=== PATIENT | female | born 1970 | race Caucasian/White ===

== ENCOUNTER 2016-08-20 15:27 | Inpatient (IN) | payer OTHER ==
[~2016-08-20] VITALS: Ht 182.9 cm; Wt 100.9 kg
[2016-08-20] VITALS (13 sets, daily range): BP systolic 107–132; BP diastolic 61–70; PULSE 93–108; RESP 21–36; TEMP 97.8–98.9; O2SAT 82–98
[~2016-08-20 15:27] MED LIST: ADVAI250I PO; ASPI325T PO; DEPA500T PO; HYDR-4347 PO; ISOS60 PO; METO50TA OR; PANT20 PO; PHEN60TA OR; PRED5TAB PO; TIOT18I INH; VENTAER INH; XANA1TAB6 PO; Z.0.OXYGENDME NC; ZOLO100T PO
[2016-08-20] MEDS ORDERED: SODIUM CHLORIDE 0.9% FLUSH 5 ML FLUSH IVF PRN (15:45)
[2016-08-20] MEDS ORDERED: methylPREDNISolone SOD SUCC 125 MG/2 ML VIAL IVP ONE (15:45)
[2016-08-20] MEDS ORDERED: SODIUM CHLOR 0.9% 1000 ML INJ 1,000 ML IV ONE ×2 (15:45)
[2016-08-20] MEDS ORDERED: ASPIRIN 325 MG TAB PO ONE (15:45)
[2016-08-20] MEDS: RESP: ALBUTEROL 2.5 MG/IPRATROPIUM 0.5 MG NEB (SCH) INH (15:48)
[2016-08-20 16:14] LABS: BLOOD GAS CARBOXYHEMOGLOBIN 5.1 % (0-4); BLOOD GAS HCO3 38 mmol/L (22-26); BLOOD GAS O2 HGB SATURATION 88 % (90-100); BLOOD GAS OXYGEN CONTENT 17.4 Vol % (12.0-20.0); BLOOD GAS PCO2 76 mmHg (38-42); BLOOD GAS PO2 73 mmHG (61-120); BLOOD GAS TOTAL HGB 14.1 G/DL (12.0-16.0); TEMP CORR TO 98.6
[2016-08-20 16:15] LABS: CRITICAL VALUE YES; DRAW SITE RT RADIAL; LITER FLOW 4 L/M; NUMBER OF ARTERIAL PUNCTURES 1; OXYGEN DEVICE NASAL CANNULA; STAT YES; ULNAR PULSE PRESENT
--- NOTE | 2016-08-20 16:26 | RADRPT ---
EXAM DATE/TIME: 08/20/2016 15:54 [place] COMPARISON: CHEST PA & LAT, October 02, 2015, 11:03. INDICATIONS : Cough, SOB MEDICAL HISTORY : Hypothyroidism SURGICAL HISTORY : Hysterectomy. Appendectomy. Tonsillectomy. ENCOUNTER: Initial ACUITY: 1 day PAIN SCORE: 0/10 LOCATION: chest FINDINGS: The lungs are hypoinflated but grossly clear. There is stable mild prominence of the lateral femoral which may reflect adenopathy versus pulmonary hypertension. The heart size is normal. CONCLUSION: Stable prominence of the hilum. Given the stability this likely represents pulmonary hypertension and less likely adenopathy. Shea Calderón MD on August 20, 2016 at 16:21 Board Certified Radiologist. This report was verified electronically.
[2016-08-20 16:33] LABS: APTT (PATIENT) 30.1 SEC (24.3-30.1); PROTHROMBIN TIME - PATIENT 11.3 SEC (9.8-11.6)
[2016-08-20 16:42] LABS: AUTOMATED NEUTROPHIL # 7.6 TH/MM3 (1.8-7.7); BASOPHIL % 0.5 % (0.0-2.0); EOSINOPHIL # 0.1 TH/MM3 (0-0.4); EOSINOPHIL % 0.8 % (0.0-4.0); HEMATOCRIT 41.3 % (35.0-46.0); HEMO FLAGS DIFF FINAL; LYMPH % 15.9 % (9.0-44.0); LYMPHOCYTE # 1.7 TH/MM3 (1.0-4.8); MEAN CORPUSCULAR HEMOGLOBIN 33.3 PG (27.0-34.0); MEAN CORPUSCULAR HGB CONC 33.3 % (32.0-36.0); MONO % 10.1 % (0.0-8.0); NEUT % 72.7 % (16.0-70.0); PLATELET COUNT 339 TH/MM3 (150-450); RED BLOOD COUNT 4.13 MIL/MM3 (4.00-5.30); RED CELL DISTRIBUTION WIDTH 16.5 % (11.6-17.2); WHITE BLOOD COUNT 10.4 TH/MM3 (4.0-11.0)
[2016-08-20 16:47] LABS: ALT (GPT) 13 U/L (10-53); ANION GAP 2 MEQ/L (5-15); AST (GOT) 11 U/L (15-37); BICARBONATE 38.6 MEQ/L (21.0-32.0); BLOOD UREA NITROGEN 2 MG/DL (7-18); CHLORIDE 95 MEQ/L (98-107); GLOMERULAR FILTRATION RATE 113 ML/MIN (>89); MAGNESIUM 2.3 MG/DL (1.5-2.5); POTASSIUM 3.8 MEQ/L (3.5-5.1); SODIUM (NA) 136 MEQ/L (136-145)
[2016-08-20 16:50] LABS: ALKALINE PHOSPHATASE 119 U/L (45-117); TOTAL BILIRUBIN ADULT 0.3 MG/DL (0.2-1.0)
[2016-08-20 16:51] LABS: CREATINE KINASE 84 U/L (26-192)
[2016-08-20 17:41] LABS: BACTERIA, URINE RARE /hpf; BLOOD, URINE NEG (NEG); COMMENT (UR) CULTURE INDICATED; CULTURE IF INDICATED CULTURE INDICATED; GLUCOSE,URINE NEG (NEG); HYALINE CAST, URINE 4 /lpf (RARE); KETONE, URINE NEG (NEG); MUCUS URINE MOD /lpf (OCC); NITRITE,URINE NEG (NEG); SQUAMOUS EPITHELIAL CELL URINE 6 /hpf (0-5); URINE COLOR YELLOW (YELLW/STRAW)
[2016-08-20] MEDS ORDERED: SERT-129 PO (17:54)
[2016-08-20] MEDS ORDERED: PHEN-524 PO (17:54)
[2016-08-20] MEDS ORDERED: METO25TA3 PO (17:54)
[2016-08-20] MEDS ORDERED: HYDR-3535 PO (17:54)
[2016-08-20] MEDS ORDERED: ALBU0.08 NEB (17:54)
[2016-08-20] MEDS ORDERED: ALPR2TAB3 PO (17:57)
[2016-08-20] MEDS ORDERED: ISOS60TA PO (17:57)
[2016-08-20] MEDS ORDERED: DEPA500T3 PO (17:59)
[2016-08-20] MEDS ORDERED: ASPI1TAB69 PO (17:59)
[2016-08-20] MEDS ORDERED: ONDANSETRON HCL 4 MG/2 ML VIAL IV PUSH PRN (18:00)
[2016-08-20] MEDS ORDERED: VENTAER INH (18:00)
[2016-08-20] MEDS ORDERED: cefTRIAXone INJ 1,000 MG in SODIUM CHLORIDE 0.9% INJ 100 ML IV ONE (18:00)
[2016-08-20] MEDS ORDERED: RESP: ALBUTEROL 1.25 MG/3 ML NEB (PRN) NEB (18:00)
[2016-08-20] MEDS ORDERED: ACETAMINOPHEN 325 MG TAB PO PRN (18:00)
[2016-08-20] MEDS: RESP: ALBUTEROL 2.5 MG/3 ML NEB (SCH) INH ×2 (18:23→18:24)
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
--- NOTE | 2016-08-20 19:08 | HHI.HP ---
[facility] Beba Alvarez MD Admission Diagnosis Hypoxia with COPD exacerbation Diagnoses: (1) COPD with acute exacerbation Diagnosis: Principal (2) Hypoxia Diagnosis: Principal (3) Hypercapnia Diagnosis: Principal (4) UTI (urinary tract infection) Diagnosis: Principal (5) Seizure disorder Diagnosis: Principal (6) Tobacco abuse Diagnosis: Principal Travel History International Travel<30 Days: No Contact w/Intl Traveler <30 Da: No Traveled to Known Affected Are: No History of Present Illness This is a 46-year-old female with a PMH of COPD, O2 Dependent, Noncompliant w/ O2, Tobacco Abuse, Seizure Disorder, Anxiety, Depression and HTN who was brought to the ER secondary to SOB. States symptoms have been ongoing x2 wks, completed steroid therapy and treatment w/ Keflex with no improvement. Denies fever or chills. No cough or sick contacts. On arrival, O2 sat 75% on RA. Placed on 4L NC, currently O2 sat 85%. S/p Solu-Medrol, DuoNeb and IV Abx w/ some improvement since arrival, however remains hypoxic. ABG w/ pH 7.32, PCO2 76, PO2 73 on 4L NC. BP 107/69, HR 108, Afebrile. WBC 10.4, elevated neutrophil count. UA with UTI. CXR was stable prominence of the hilum. Review of Systems Other ROS: 14 point review of systems otherwise negative. Past Family Social History Past Medical History PMH: COPD, O2 Dependent, Noncompliant w/ O2, Tobacco Abuse, Seizure Disorder, Anxiety, Depression and HTN Past Surgical History PAST SURGICAL HISTORY: Bilateral Foot Surgery, , Dental Extraction Allergies: Coded Allergies: No Known Allergies (Verified , 08/20/16) Family History PAST FAMILY HISTORY: Reviewed. No h/o DM or CAD Social History PAST SOCIAL HISTORY: Negative for alcohol. Smokes 1ppd. +Marijuana. Physical Exam Vital Signs Vital Signs Date Time Temp Pulse Resp B/P Pulse Ox O2 Delivery O2 Flow Rate FiO2 08/20/16 17:25 97 21 123/68 89 Nasal Cannula 4 08/20/16 16:30 98 24 110/65 89 Nasal Cannula 4 08/20/16 15:50 93 Nasal Cannula 4.00 08/20/16 15:40 98.9 105 36 107/69 82 Room Air 08/20/16 15:30 82 Room Air 08/20/16 15:30 98.9 108 36 107/69 86 08/20/16 15:30 85 Nasal Cannula 2 Physical Exam PE: GENERAL: Middle-aged white female in no acute distress. Looks remarkably well for O2 sat being 85%, able to converse without dyspnea HEENT: PERRLA, EOMI. No scleral icterus or conjunctival pallor. No lid lag or facial droop. CARDIOVASCULAR: Regular rate and rhythm. No obvious murmurs to auscultation. No chest tenderness to palpation. RESPIRATORY: No obvious rhonchi. + wheezing bilaterally. Breath sounds equal bilaterally. GASTROINTESTINAL: Abdomen soft, non-tender, nondistended. BS normal. MUSCULOSKELETAL: Extremities without clubbing, cyanosis, or edema. No obvious deformities. NEUROLOGICAL: Awake, alert and oriented x4. No focal neurologic deficits. Moving both upper and lower extremities spontaneously. Laboratory Laboratory Tests Test 08/20/16 08/20/16 08/20/16 15:59 16:00 16:40 Blood Gas Puncture Site RT RADIAL Blood Gas Patient Temperature 98.6 Blood Gas HCO3 38 Blood Gas Base Excess 12.0 Blood Gas Oxygen Saturation 88 Arterial Blood pH 7.32 Arterial Blood Partial 76 Pressure CO2 Arterial Blood Partial 73 Pressure O2 Arterial Blood Oxygen Content 17.4 Arterial Blood 5.1 Carboxyhemoglobin Arterial Blood Methemoglobin 2.0 Blood Gas Hemoglobin 14.1 Oxygen Delivery Device NASAL CANNULA Blood Gas Liter Flow 4 White Blood Count 10.4 Red Blood Count 4.13 Hemoglobin 13.7 Hematocrit 41.3 Mean Corpuscular Volume 100.0 Mean Corpuscular Hemoglobin 33.3 Mean Corpuscular Hemoglobin 33.3 Concent Red Cell Distribution Width 16.5 Platelet Count 339 Mean Platelet Volume 8.9 Neutrophils (%) (Auto) 72.7 Lymphocytes (%) (Auto) 15.9 Monocytes (%) (Auto) 10.1 Eosinophils (%) (Auto) 0.8 Basophils (%) (Auto) 0.5 Neutrophils # (Auto) 7.6 Lymphocytes # (Auto) 1.7 Monocytes # (Auto) 1.1 Eosinophils # (Auto) 0.1 Basophils # (Auto) 0.0 CBC Comment DIFF FINAL Differential Comment Prothrombin Time 11.3 Prothromb Time International 1.0 Ratio Activated Partial 30.1 Thromboplast Time Sodium Level 136 Potassium Level 3.8 Chloride Level 95 Carbon Dioxide Level 38.6 Anion Gap 2 Blood Urea Nitrogen 2 Creatinine 0.57 Estimat Glomerular Filtration 113 Rate Random Glucose 96 Lactic Acid Level 1.0 Calcium Level 8.9 Magnesium Level 2.3 Total Bilirubin 0.3 Aspartate Amino Transf 11 (AST/SGOT) Alanine Aminotransferase 13 (ALT/SGPT) Alkaline Phosphatase 119 Total Creatine Kinase 84 Troponin I LESS THAN 0.02 B-Type Natriuretic Peptide 42 Total Protein 7.5 Albumin 2.8 Urine Color YELLOW Urine Turbidity HAZY Urine pH 6.0 Urine Specific [place] 1.017 Urine Protein 30 Urine Glucose (UA) NEG Urine Ketones NEG Urine Occult Blood NEG Urine Nitrite NEG Urine Bilirubin NEG Urine Urobilinogen LESS THAN 2.0 Urine Leukocyte Esterase LARGE Urine WBC 19 Urine Squamous Epithelial 6 Cells Urine Bacteria RARE Urine Hyaline Casts 4 Urine Mucus MOD Microscopic Urinalysis Comment CULTURE INDICATED Date/Time Procedure Status Source Growth 08/20/16 16:40 Urine Culture Received Urine Clean Catch Pending 08/20/16 16:40 Influenza Types A,B Antigen (WOOD) - Final Complete Nasal Aspirate NEGATIVE FOR FLU A AND B ANTIGEN.... 08/20/16 16:00 Aerobic Blood Culture Received Blood Peripheral Pending 08/20/16 16:00 Anaerobic Blood Culture Received Blood Peripheral Pending Result Diagram: 08/20/16 1600 08/20/16 1600 Assessment and Plan Problem List: (1) COPD with acute exacerbation ICD Code: J44.1 Status: Acute (2) Hypoxia ICD Code: R09.02 Status: Acute (3) Hypercapnia ICD Code: R06.89 Status: Acute (4) UTI (urinary tract infection) ICD Code: N39.0 Status: Acute (5) Tobacco abuse ICD Code: Z72.0 Status: Acute (6) Seizure disorder ICD Code: G40.909 Status: Chronic Assessment and Plan A/P: 1. COPD: Chronic Respiratory Failure w/ Acute Exacerbation. O2 Dependent, Non -Compliant w/ O2 at home. S/p Steroids, DuoNeb and Keflex x2 wks w/ minimal improvement. Significantly hypoxic on arrival w/ O2 sat 75% on RA. Currently on 4L NC w/ O2 sat persistently 85-86%. Pt appears remarkably well for such profound hypoxia. ABG w/ pH 7.32, PCO2 76, PO2 73. In light of hypoxia w/ hypercapnia, will admit to ICU, start on BIPAP, repeat ABG. Continue w/ Solu- Medrol, DuoNeb, IV Abx, Mucinex, Symbicort. Consult Dam Operator for assistance w/ management as needed. CXR w/ no acute findings, images reviewed by me. Follow up cultures. 2. UTI: U/a w/ UTI. S/p IV Rocephin in ER, will switch to IV Levaquin for UTI and possible atypical PNA. 3. Seizure Disorder: Will resume home medications. No recent seizure activity. 4. Tobacco Abuse: Ongoing. Pt counselled. Ativan prn. 5. DVT Prophylaxis: SCD/Teds. 6. Social work for d/c planning as needed. 7. Case discussed w/ ER physician at length. Physician Certification 2 Midnight Certification Type: Admission for Inpatient Services Order for Inpatient Services The services are ordered in accordance with Medicare regulations or non- Medicare payer requirements, as applicable. In the case of services not specified as inpatient-only, they are appropriately provided as inpatient services in accordance with the 2-midnight benchmark. Estimated LOS (days): 2 days is the estimated time the patient will need to remain in the hospital, assuming treatment plan goals are met and no additional complications. Post-Hospital Plan: Not yet determined Problem Qualifiers (1) UTI (urinary tract infection): Qualified Code: N30.00 - Acute cystitis without hematuria Rhonda Dudley MD Aug 20, 2016 19:08
[2016-08-20] MEDS ORDERED: ONDANSETRON HCL 4 MG/2 ML VIAL IVP PRN (19:15)
[2016-08-20] MEDS ORDERED: MORPHINE SULFATE 4 MG/ML INJ IV PRN (19:15)
[2016-08-20] MEDS ORDERED: MISCELLANEOUS NURSING INFORMATION XX SCH (19:15)
[2016-08-20] MEDS ORDERED: BISACODYL 10 MG SUPP PR PRN (19:15)
[2016-08-20] MEDS ORDERED: CHLORHEXIDINE GLUCONATE 2 % 1 PACK (2 CLOTHS) TOP PRN (19:15)
[2016-08-20] MEDS ORDERED: SODIUM CHLORIDE 0.9% FLUSH 5 ML FLUSH FLUSH PRN (19:15)
[2016-08-20] MEDS: RESP: ALBUTEROL 2.5 MG/IPRATROPIUM 0.5 MG NEB (SCH) NEB ×2 (19:27→23:49)
[2016-08-20 20:11] LABS: BLOOD GAS HCO3 34 mmol/L (22-26); BLOOD GAS O2 HGB SATURATION 89 % (90-100); BLOOD GAS OXYGEN CONTENT 17.1 Vol % (12.0-20.0); BLOOD GAS PCO2 73 mmHg (38-42); BLOOD GAS PO2 78 mmHG (61-120); BLOOD GAS TOTAL HGB 13.7 G/DL (12.0-16.0); TEMP CORR TO 98.6
[2016-08-20 20:12] LABS: CRITICAL VALUE YES
[2016-08-20 20:13] LABS: DRAW SITE RT RADIAL; FIO2 60 %; NUMBER OF ARTERIAL PUNCTURES 1; OXYGEN DEVICE BIPAP; STAT NO; ULNAR PULSE PRESENT; VENT SETTINGS IPAP=12 EPAP=6
[2016-08-20] MEDS ORDERED: BUDESONIDE-FORMOTEROL 160/4.5 MCG INHALER INH SCH (21:00)
[2016-08-20] MEDS: BUDESONIDE-FORMOTEROL 160/4.5 MCG INHALER INH SCH (21:20)
[2016-08-20] MEDS: SODIUM CHLORIDE 0.9% FLUSH 5 ML FLUSH FLUSH SCH (21:20)
[2016-08-20] MEDS: DIVALPROEX SODIUM E.R. 500 MG TAB PO SCH (21:20)
[2016-08-20] MEDS: CHLORHEXIDINE GLUCONATE 2 % 1 PACK (2 CLOTHS) TOP SCH (21:21)
[2016-08-20] MEDS: ZOLPIDEM TARTRATE 5 MG TAB PO PRN (21:21)
[2016-08-20] MEDS: guaiFENesin E.R. 600 MG TAB PO SCH (21:27)
[2016-08-20] MEDS ORDERED: CHLORHEXIDINE GLUCONATE 2 % 1 PACK (2 CLOTHS)(extra cloths) TOP PRN (21:45)
[2016-08-21] VITALS (18 sets, daily range): BP systolic 107–120; BP diastolic 57–79; PULSE 68–104; RESP 20–39; TEMP 97–98.5; O2SAT 88–98
[2016-08-21] MEDS: methylPREDNISolone SOD SUCC 40 MG/1 ML VIAL IV PUSH SCH ×4 (00:30→20:24)
[2016-08-21] MEDS: CHLORHEXIDINE GLUCONATE 2 % 1 PACK (2 CLOTHS)(taper/protocol) TOP SCH (00:30)
[2016-08-21] MEDS: RESP: ALBUTEROL 2.5 MG/IPRATROPIUM 0.5 MG NEB (SCH) NEB ×5 (03:13→20:08)
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
[2016-08-21 07:50] LABS: AUTOMATED NEUTROPHIL # 9.6 TH/MM3 (1.8-7.7); BASOPHIL % 0.2 % (0.0-2.0); HEMATOCRIT 41.3 % (35.0-46.0); HEMO FLAGS DIFF FINAL; LYMPH % 7.5 % (9.0-44.0); LYMPHOCYTE # 0.8 TH/MM3 (1.0-4.8); MEAN CELL VOLUME 102.1 FL (80.0-100.0); MEAN CORPUSCULAR HEMOGLOBIN 32.7 PG (27.0-34.0); MONO % 2.9 % (0.0-8.0); NEUT % 89.4 % (16.0-70.0); PLATELET COUNT 318 TH/MM3 (150-450); RED BLOOD COUNT 4.05 MIL/MM3 (4.00-5.30); RED CELL DISTRIBUTION WIDTH 16.3 % (11.6-17.2); WHITE BLOOD COUNT 10.7 TH/MM3 (4.0-11.0)
[2016-08-21 08:19] LABS: ALKALINE PHOSPHATASE 116 U/L (45-117); ALT (GPT) 12 U/L (10-53); ANION GAP 8 MEQ/L (5-15); AST (GOT) 12 U/L (15-37); BICARBONATE 35.1 MEQ/L (21.0-32.0); BLOOD UREA NITROGEN 5 MG/DL (7-18); CHLORIDE 97 MEQ/L (98-107); GLOMERULAR FILTRATION RATE 141 ML/MIN (>89); POTASSIUM 4.1 MEQ/L (3.5-5.1); SODIUM (NA) 140 MEQ/L (136-145); TOTAL BILIRUBIN ADULT 0.2 MG/DL (0.2-1.0)
[2016-08-21] MEDS: ALPRAZolam 1 MG TAB PO SCH ×3 (08:44→17:18)
[2016-08-21] MEDS: BUDESONIDE-FORMOTEROL 160/4.5 MCG INHALER INH SCH ×2 (08:44→20:24)
[2016-08-21] MEDS: DIVALPROEX SODIUM E.R. 500 MG TAB PO SCH ×2 (08:44→20:23)
[2016-08-21] MEDS: METOPROLOL TARTRATE 25 MG TAB PO SCH (08:45)
[2016-08-21] MEDS: guaiFENesin E.R. 600 MG TAB PO SCH (08:45)
[2016-08-21] MEDS: SODIUM CHLORIDE 0.9% FLUSH 5 ML FLUSH FLUSH SCH ×2 (08:45→20:24)
[2016-08-21] MEDS: SERTRALINE HCL 100 MG TAB PO SCH (08:45)
[2016-08-21] MEDS: ASPIRIN EC 81 MG TABEC PO SCH (08:45)
[2016-08-21] MEDS ORDERED: LEVOFLOXACIN 750 MG PREMIX INJ 150 ML IV SCH (09:00)
--- NOTE | 2016-08-21 14:20 | EKG ---
Date Performed: 08/20/2016 Time Performed: 15:33:41 PTAGE: 46 years EKG: SINUS TACHYCARDIA POSSIBLE LEFT ATRIAL ENLARGEMENT INFERIOR MYOCARDIAL INFARCTION ABNORMAL ECG Compared to prior tracing no significant change PREVIOUS TRACING : 10/01/2015 06.50 DOCTOR: Moe Aceves Interpretating Date/Time 08/21/2016 14:14:44
--- NOTE | 2016-08-21 14:31 | HHI.PR ---
Subjective Remarks Follow-up for COPD exacerbation, acute respiratory failure. Patient is currently doing well on 5-6 L of oxygen via nasal cannula. She was on BiPAP overnight. Denies any chest pain, fever or chills. She requests something for her cough. Objective Vitals Vital Signs Date Time Temp Pulse Resp B/P Pulse Ox O2 Delivery O2 Flow Rate FiO2 08/21/16 12:00 90 08/21/16 10:00 88 08/21/16 08:00 90 08/21/16 07:28 90 Nasal Cannula 6.00 08/21/16 06:00 89 08/21/16 04:06 95 50 08/21/16 04:00 98.5 91 20 107/65 95 08/21/16 04:00 89 08/21/16 02:00 87 08/21/16 00:35 98 50 08/21/16 00:00 98.0 104 20 112/67 91 08/21/16 00:00 104 08/20/16 22:00 93 08/20/16 20:44 98 BiPAP 60 08/20/16 20:42 98 60 08/20/16 20:37 97.8 97 24 132/70 97 08/20/16 20:25 98 4.00 08/20/16 20:17 94 21 111/61 95 Nasal Cannula 4 08/20/16 19:20 93 60 08/20/16 19:15 86 Nasal Cannula 5.00 08/20/16 17:25 97 21 123/68 89 Nasal Cannula 4 08/20/16 16:30 98 24 110/65 89 Nasal Cannula 4 08/20/16 15:50 93 Nasal Cannula 4.00 08/20/16 15:40 98.9 105 36 107/69 82 Room Air 08/20/16 15:30 82 Room Air 08/20/16 15:30 98.9 108 36 107/69 86 08/20/16 15:30 85 Nasal Cannula 2 I/O 08/20/16 08/20/16 08/20/16 08/21/16 08/21/16 08/21/16 07:00 15:00 23:00 07:00 15:00 23:00 Intake Total 600 ml Output Total 1400 ml Balance -800 ml Intake Oral 600 ml Output Urine Total 1400 ml Stool Total 0 ml # Voids 1 Result Diagram: 08/21/16 0601 08/21/16 0601 Imaging Last Impressions Chest X-Ray 08/20/16 1535 Signed Impressions: Service Date/Time: Saturday, August 20, 2016 15:54 - CONCLUSION: Stable prominence of the hilum. Given the stability this likely represents pulmonary hypertension and less likely adenopathy. Shea Calderón MD Objective Remarks GENERAL: Alert, oriented 3. Speaks in full sentences. SKIN: Warm and dry. HEAD: Normocephalic. EYES: No scleral icterus. No injection or drainage. NECK: Supple, trachea midline. No JVD or lymphadenopathy. CARDIOVASCULAR: Regular rate and rhythm without murmurs, gallops, or rubs. RESPIRATORY: Diffuse rhonchi, poor air entry, expiratory wheezes. GASTROINTESTINAL: Abdomen soft, non-tender, nondistended. MUSCULOSKELETAL: No cyanosis, or edema. BACK: Nontender without obvious deformity. No CVA tenderness. Procedures None. A/P Problem List: (1) Acute respiratory failure ICD Code: J96.00 Status: Acute (2) COPD with acute exacerbation ICD Code: J44.1 Status: Acute (3) UTI (urinary tract infection) ICD Code: N39.0 Status: Acute (4) Tobacco abuse ICD Code: Z72.0 Status: Acute (5) Seizure disorder ICD Code: G40.909 Status: Chronic Assessment and Plan Ms. Quiros is a 46-year-old female with a PMH of COPD, O2 Dependent, Noncompliant w/ O2, Tobacco Abuse, Seizure Disorder, Anxiety, Depression and HTN who was brought to the ER secondary to SOB. On arrival, O2 sat 75% on RA. Placed on 4L NC, currently O2 sat 85%. S/p Solu-Medrol, DuoNeb and IV Abx w/ some improvement since arrival, however remains hypoxic. ABG w/ pH 7.32, PCO2 76, PO2 73 on 4L NC. BP 107/69, HR 108, Afebrile. WBC 10.4, elevated neutrophil count. UA with UTI. CXR was stable prominence of the hilum. Patient was placed on BiPAP and improved clinically. - Acute exacerbation of COPD - Acute respiratory failure - Hypoxic and hypercapnic. - Currently doing well on 3L of O2 via NC. (Discussed with RN 30 minutes after seeing patient, patient is requiring higher amount of O2). - Discussed with RN - if patient continues to do well on 3L, we will transfer her to the floor. - Switch Levaquin IV to PO today. Continue Symbicort. - Solu-medrol 40mg Q6hrs, DuoNeb Q4hrs while awake and PRN. - Continue BiPAP at night. - Anxiety - continue Xanax. - History of Seizure disorder - Continue Depakote ER 500mg BID. - Tobacco abuse - discussed with patient regarding her COPD and smoking habits, encouraged patient to quit smoking. Patient verbalized understanding. Full code. Lovenox. Problem Qualifiers (1) UTI (urinary tract infection): Qualified Code: N30.00 - Acute cystitis without hematuria Katrin Lofton DO Aug 21, 2016 2:31 pm
[2016-08-21] MEDS ORDERED: guaiFENesin/CODEINE SYRUP 200 MG/20 MG/10 ML CUP PO PRN (15:00)
[2016-08-21] MEDS: ENOXAPARIN SODIUM 40 MG/0.4 ML SYRINGE SQ SCH (15:57)
[2016-08-21] MEDS: ACETAMINOPHEN/HYDROcodone 325 MG/5 MG TAB PO PRN (17:21)
[2016-08-21] MEDS ORDERED: methylPREDNISolone SOD SUCC 40 MG/1 ML VIAL IV PUSH SCH (20:00)
[2016-08-21] MEDS: ZOLPIDEM TARTRATE 5 MG TAB PO PRN (22:28)
[2016-08-22] VITALS (13 sets, daily range): BP systolic 112–126; BP diastolic 55–75; PULSE 80–99; RESP 18–23; TEMP 97–98.4; O2SAT 92–95
[2016-08-22] MEDS: CHLORHEXIDINE GLUCONATE 2 % 1 PACK (2 CLOTHS)(taper/protocol) TOP SCH (03:03)
[2016-08-22] MEDS: CHLORHEXIDINE GLUCONATE 2 % 1 PACK (2 CLOTHS) TOP SCH (03:51)
[2016-08-22] MEDS: methylPREDNISolone SOD SUCC 40 MG/1 ML VIAL IV PUSH SCH ×4 (03:51→20:47)
[2016-08-22] MEDS: RESP: ALBUTEROL 2.5 MG/IPRATROPIUM 0.5 MG NEB (SCH) NEB ×4 (07:47→20:36)
[2016-08-22] MEDS: SERTRALINE HCL 100 MG TAB PO SCH (08:58)
[2016-08-22] MEDS: METOPROLOL TARTRATE 25 MG TAB PO SCH (08:58)
[2016-08-22] MEDS: ALPRAZolam 1 MG TAB PO SCH ×3 (08:58→16:45)
[2016-08-22] MEDS: DIVALPROEX SODIUM E.R. 500 MG TAB PO SCH ×2 (09:06→20:47)
[2016-08-22] MEDS: SODIUM CHLORIDE 0.9% FLUSH 5 ML FLUSH FLUSH SCH ×2 (09:07→20:46)
[2016-08-22] MEDS: BUDESONIDE-FORMOTEROL 160/4.5 MCG INHALER INH SCH ×2 (09:07→20:51)
[2016-08-22] MEDS: ASPIRIN EC 81 MG TABEC PO SCH (09:23)
--- NOTE | 2016-08-22 10:08 | HHI.PR ---
Subjective Remarks Patient seen in follow-up for acute COPD exacerbation, anxiety, seizure disorder. She reports that she is feeling slightly better. Her breathing is improving. Currently on 6 L nasal cannula. Objective Vitals Vital Signs Date Time Temp Pulse Resp B/P Pulse Ox O2 Delivery O2 Flow Rate FiO2 08/22/16 07:48 95 Nasal Cannula 6.00 08/22/16 06:00 91 08/22/16 04:20 94 50 08/22/16 04:00 98.4 80 19 125/75 93 08/22/16 04:00 80 08/22/16 02:00 88 08/22/16 00:00 97.7 91 23 126/65 92 08/22/16 00:00 91 08/21/16 23:57 95 50 08/21/16 22:34 92 50 08/21/16 22:00 94 08/21/16 20:09 91 Nasal Cannula 6.00 08/21/16 20:00 97.0 93 22 114/57 92 08/21/16 20:00 90 08/21/16 18:00 90 08/21/16 16:00 91 08/21/16 16:00 97.9 68 31 117/70 92 08/21/16 14:00 88 08/21/16 12:00 98.1 90 39 120/79 90 08/21/16 12:00 90 I/O 08/21/16 08/21/16 08/21/16 08/22/16 08/22/16 08/22/16 07:00 15:00 23:00 07:00 15:00 23:00 Intake Total 600 ml 1150 ml 680 ml Output Total 1400 ml 1000 ml Balance -800 ml 150 ml 680 ml Intake Oral 600 ml 1000 ml IV Total 150 ml 680 ml Output Urine Total 1400 ml 1000 ml Stool Total 0 ml 0 ml # Voids 1 1 Result Diagram: 08/21/16 0601 08/21/16 0601 Imaging Last Impressions Chest X-Ray 08/20/16 1535 Signed Impressions: Service Date/Time: Saturday, August 20, 2016 15:54 - CONCLUSION: Stable prominence of the hilum. Given the stability this likely represents pulmonary hypertension and less likely adenopathy. Shea Calderón MD Objective Remarks GENERAL: Patient appears older than stated age, in no acute distress. CARDIOVASCULAR: Normal rate and regular rhythm without murmurs, gallops, or rubs. RESPIRATORY: Poor air movement bilaterally. There are faint expiratory wheezing bilaterally. No rhonchi. GASTROINTESTINAL: Abdomen soft, non-tender, non-distended. Normal active bowel sounds MUSCULOSKELETAL: Extremities without cyanosis, or edema. NEURO: Alert & Oriented x4 to person, place, time, situation. Moves all ext x4 PSYCH: Appropriate mood and affect. Procedures None. A/P Problem List: (1) Acute respiratory failure ICD Code: J96.00 Status: Acute (2) COPD with acute exacerbation ICD Code: J44.1 Status: Acute (3) UTI (urinary tract infection) ICD Code: N39.0 Status: Acute (4) Tobacco abuse ICD Code: Z72.0 Status: Acute (5) Seizure disorder ICD Code: G40.909 Status: Chronic Assessment and Plan 46-year-old female with a PMH of COPD, O2 Dependent, Noncompliant w/ O2, Tobacco Abuse, Seizure Disorder, Anxiety, Depression and HTN who was brought to the ER secondary to SOB. On arrival, O2 sat 75% on RA. Placed on 4L NC, currently O2 sat 85%. Patient was placed on BiPAP and improved clinically. - Acute exacerbation of COPD/Acute respiratory failure - Hypoxic and hypercapnic on presentation. Patient is oxygen dependent but does not use it consistently. - Currently on 6L of O2 via NC. Wean off oxygen as tolerated. - Continue Solu-Medrol, Levaquin, DuoNeb Q4hrs while awake and PRN. - Continue BiPAP at night as needed. - Patient will need follow-up with her primary care physician and referral to scheduler for her COPD -Weaned down oxygen as tolerated to keep sats greater than 90%. - Anxiety - continue Xanax. - History of Seizure disorder - Continue Depakote ER 500mg BID. - Tobacco abuse -the patient was counseled again regarding complete cessation of tobacco use. Full code. Lovenox. Discharge Planning Stable to transfer to floor today. Problem Qualifiers (1) UTI (urinary tract infection): Qualified Code: N30.00 - Acute cystitis without hematuria Brenda Keita MD Aug 22, 2016 10:07
[2016-08-22] MEDS: ENOXAPARIN SODIUM 40 MG/0.4 ML SYRINGE SQ SCH (16:46)
[2016-08-22] MEDS: ZOLPIDEM TARTRATE 5 MG TAB PO PRN (20:57)
[2016-08-23] VITALS: BP 139/63; PULSE 98; RESP 18; TEMP 97.6; O2SAT 98
[2016-08-23] MEDS: methylPREDNISolone SOD SUCC 40 MG/1 ML VIAL IV PUSH SCH ×2 (02:31→09:43)
[2016-08-23] MEDS: CHLORHEXIDINE GLUCONATE 2 % 1 PACK (2 CLOTHS) TOP SCH (04:00)
[2016-08-23] MEDS: CHLORHEXIDINE GLUCONATE 2 % 1 PACK (2 CLOTHS)(taper/protocol) TOP SCH (04:00)
[2016-08-23 07:43] VITALS: O2SAT 95
[2016-08-23] MEDS: RESP: ALBUTEROL 2.5 MG/IPRATROPIUM 0.5 MG NEB (SCH) NEB ×3 (07:43→15:21)
[2016-08-23 08:00] VITALS: BP 139/70; PULSE 96; RESP 17; TEMP 96.7; O2SAT 90
[2016-08-23] MEDS: ALPRAZolam 1 MG TAB PO SCH ×2 (09:42→12:54)
[2016-08-23] MEDS: ASPIRIN EC 81 MG TABEC PO SCH (09:42)
[2016-08-23] MEDS: ACETAMINOPHEN/HYDROcodone 325 MG/5 MG TAB PO PRN (09:42)
[2016-08-23] MEDS: BUDESONIDE-FORMOTEROL 160/4.5 MCG INHALER INH SCH (09:43)
[2016-08-23] MEDS: SERTRALINE HCL 100 MG TAB PO SCH (09:43)
[2016-08-23] MEDS: METOPROLOL TARTRATE 25 MG TAB PO SCH (09:43)
[2016-08-23] MEDS: DIVALPROEX SODIUM E.R. 500 MG TAB PO SCH (09:43)
[2016-08-23] MEDS: SODIUM CHLORIDE 0.9% FLUSH 5 ML FLUSH FLUSH SCH (09:46)
[2016-08-23 12:00] VITALS: BP 114/62; PULSE 81; RESP 17; TEMP 97.2; O2SAT 91
[2016-08-23] MEDS ORDERED: PRED20 PO (12:48)
[2016-08-23] MEDS ORDERED: ADVA250A INH (12:48)
--- NOTE | 2016-08-23 12:48 | HHI.DS ---
Discharge Summary Admission Date Aug 20, 2016 at 18:03 Discharge Date: Aug 23, 2016 Admitting Diagnosis Hypoxia with COPD exacerbation (1) Acute respiratory failure ICD Code: J96.00 (2) COPD with acute exacerbation ICD Code: J44.1 (3) UTI (urinary tract infection) ICD Code: N39.0 (4) Tobacco abuse ICD Code: Z72.0 (5) Seizure disorder ICD Code: G40.909 Procedures None. Brief History - From Admission This is a 46-year-old female with a PMH of COPD, O2 Dependent, Noncompliant w/ O2, Tobacco Abuse, Seizure Disorder, Anxiety, Depression and HTN who was brought to the ER secondary to SOB. States symptoms have been ongoing x2 wks, completed steroid therapy and treatment w/ Keflex with no improvement. Denies fever or chills. No cough or sick contacts. On arrival, O2 sat 75% on RA. Placed on 4L NC, currently O2 sat 85%. S/p Solu-Medrol, DuoNeb and IV Abx w/ some improvement since arrival, however remains hypoxic. ABG w/ pH 7.32, PCO2 76, PO2 73 on 4L NC. BP 107/69, HR 108, Afebrile. WBC 10.4, elevated neutrophil count. UA with UTI. CXR was stable prominence of the hilum. CBC/BMP: 08/21/16 0601 08/21/16 0601 Significant Findings Laboratory Tests Test 08/20/16 08/20/16 08/20/16 08/20/16 15:59 16:00 16:40 20:00 Blood Gas HCO3 38 mmol/L 34 mmol/L (22-26) (22-26) Blood Gas Base Excess 12.0 mmol/L 7.0 mmol/L (-2-2) (-2-2) Blood Gas Oxygen Saturation 88 % (90-100) 89 % (90-100) Arterial Blood pH 7.32 7.29 (7.380-7.420) (7.380-7.420) Arterial Blood Partial 76 mmHg (38-42) 73 mmHg (38-42) Pressure CO2 Arterial Blood 5.1 % (0-4) Carboxyhemoglobin Neutrophils (%) (Auto) 72.7 % (16.0-70.0) Monocytes (%) (Auto) 10.1 % (0.0-8.0) Monocytes # (Auto) 1.1 TH/MM3 (0-0.9) Chloride Level 95 MEQ/L (98-107) Carbon Dioxide Level 38.6 MEQ/L (21.0-32.0) Anion Gap 2 MEQ/L (5-15) Blood Urea Nitrogen 2 MG/DL (7-18) Aspartate Amino Transf 11 U/L (15-37) (AST/SGOT) Alkaline Phosphatase 119 U/L (45-117) Troponin I LESS THAN 0.02 NG/ML (0.02-0.05) Albumin 2.8 GM/DL (3.4-5.0) Urine Turbidity HAZY (CLEAR) Urine Protein 30 mg/dL (NEG-TRACE) Urine Leukocyte Esterase LARGE (NEG) Urine WBC 19 /hpf (0-5) Urine Bacteria RARE /hpf (NONE) Urine Mucus MOD /lpf (OCC) Test 08/21/16 06:01 Mean Corpuscular Volume 102.1 FL (80.0-100.0) Neutrophils (%) (Auto) 89.4 % (16.0-70.0) Lymphocytes (%) (Auto) 7.5 % (9.0-44.0) Neutrophils # (Auto) 9.6 TH/MM3 (1.8-7.7) Lymphocytes # (Auto) 0.8 TH/MM3 (1.0-4.8) Chloride Level 97 MEQ/L (98-107) Carbon Dioxide Level 35.1 MEQ/L (21.0-32.0) Blood Urea Nitrogen 5 MG/DL (7-18) Creatinine 0.47 MG/DL (0.50-1.00) Random Glucose 119 MG/DL (74-106) Aspartate Amino Transf 12 U/L (15-37) (AST/SGOT) Albumin 2.7 GM/DL (3.4-5.0) Imaging Last Impressions Chest X-Ray 08/20/16 6035 Signed Impressions: Service Date/Time: Saturday, August 20, 2016 15:54 - CONCLUSION: Stable prominence of the hilum. Given the stability this likely represents pulmonary hypertension and less likely adenopathy. Shea Calderón MD PE at Discharge GENERAL: Patient appears older than stated age, in no acute distress. CARDIOVASCULAR: Normal rate and regular rhythm without murmurs, gallops, or rubs. RESPIRATORY: Poor air movement bilaterally. There are faint expiratory wheezing bilaterally. No rhonchi. GASTROINTESTINAL: Abdomen soft, non-tender, non-distended. Normal active bowel sounds MUSCULOSKELETAL: Extremities without cyanosis, or edema. NEURO: Alert & Oriented x4 to person, place, time, situation. Moves all ext x4 PSYCH: Appropriate mood and affect. Pt update on day of discharge Patient reports that she is feeling well. Ready for discharge. Hospital Course 46-year-old female with a PMH of COPD, O2 Dependent, Noncompliant w/ O2, Tobacco Abuse, Seizure Disorder, Anxiety, Depression and HTN who was brought to the ER secondary to SOB. On arrival, O2 sat 75% on RA. Placed on 4L NC. Patient was placed on BiPAP and improved clinically. Evaluation and treatment course detailed below: - Acute exacerbation of COPD/Acute respiratory failure - Hypoxic and hypercapnic on presentation. Patient is oxygen dependent but does not use it consistently. Patient was treated with Solu-Medrol, breathing treatments, and supplemental oxygen. Her condition improved and she was discharged home on the prednisone taper. - Anxiety - continue Xanax. - History of Seizure disorder - Continue Depakote ER 500mg BID. - Tobacco abuse -the patient was counseled again regarding complete cessation of tobacco use. Pt Condition on Discharge: Good Discharge Disposition: Discharge Home Discharge Time: <= 30 minutes Discharge Instructions DIET: Follow Instructions for: Heart Healthy Diet Activities you can perform: Regular-No Restrictions Follow up Referrals: PCP Follow-up - 1 Week New Medications: Prednisone (Prednisone) 20 Mg Tab 20 MG PO DIRECTED Take 60 MG daily x 4 days, then 40 MG x 4 days, then 20 MG daily x 4 days. #24 Ref 0 TAB Fluticasone-Salmeterol Inh (Advair Diskus Inh) 250-50 Mcg/Blist Aer 1 PUFF INH BID Rinse mouth after use. #1 Ref 0 INHALER Continued Medications: Albuterol 18 GM Inh (Ventolin Hfa 18 GM Inh) 90 Mcg/Act Aer 2 PUFF INH Q4H PRN SHORTNESS OF BREATH #1 Ref 0 INHALER Albuterol Neb (Albuterol Neb) 2.5 Mg/3 Ml Neb 2.5 MG NEB Q4HR NEB PRN SHORTNESS OF BREATH #60 Ref 0 NEBULE Alprazolam (Alprazolam) 2 Mg Tab 2 MG PO TID ANXIETY Ref 0 TAB Aspirin (Aspirin) 81 Mg Tabdr 81 MG PO DAILY TAB Divalproex ER (Depakote ER) 500 Mg Moshe 500 MG PO BID Control Seizures #30 Ref 0 TAB Hydrocodone-Acetaminophen (Lortab) 10-325 Mg Tab 1 TAB PO Q4H PRN PAIN Ref 0 TAB Isosorbide Mononitrate ER (Isosorbide Mononitrate ER) Unknown Strength Tab Unknown Dose PO DAILY Prevent Chest Pain #30 Ref 0 TAB Metoprolol Tartrate (Metoprolol Tartrate) 25 Mg Tab 25 MG PO DAILY #30 Ref 0 TAB Phenobarbital (Phenobarbital) 60 Mg Tab 60 MG PO TID Control Seizures #90 Ref 0 TAB Sertraline (Sertraline) 100 Mg Tab 100 MG PO DAILY #30 Ref 0 TAB Brenda Keita MD Aug 23, 2016 12:48
[2016-08-23 15:21] VITALS: O2SAT 96
== END 2016-08-23 16:33 | disposition home or self-care (01) | DRG 190 ==
LOC: NEPA 15:27 → NEDA 18:03 → HIME 20:25 → N07A 08-22 14:43
PROVIDERS: ADMIT Family Medicine; ATTEND Family Medicine
PROC: 5A09357 Assistance with Respiratory Ventilation, Less than 24 Consecutive Hours, Continuous Positive Airway Pressure (ICD-10-PCS; principal; 2016-08-20)
DX: J44.1 Chronic obstructive pulmonary disease with (acute) exacerbation (principal); J96.22 Acute and chronic respiratory failure with hypercapnia; J96.21 Acute and chronic respiratory failure with hypoxia; Z99.81 Dependence on supplemental oxygen; N39.0 Urinary tract infection, site not specified; G40.909 Epilepsy, unspecified, not intractable, without status epilepticus; F17.210 Nicotine dependence, cigarettes, uncomplicated; I10 Essential (primary) hypertension; I25.10 Atherosclerotic heart disease of native coronary artery without angina pectoris; Z79.82 Long term (current) use of aspirin; F41.9 Anxiety disorder, unspecified; Z91.19 Patient's noncompliance with other medical treatment and regimen; I25.2 Old myocardial infarction
CPT/HCPCS: 36600; 71010; 80053; 81001; 82550; 82805; 83605; 83735; 83880; 84484; 85025; 85610; 85730; 87040; 87086; 87641; 87804; 93005; 94002; 94003; 94640; 94664; 96361; 96374; J0696; J1650; J1956; J2920; J2930; J7030; J7613

== ENCOUNTER 2017-01-05 16:02 | Emergency (ER) | payer OTHER ==
[~2017-01-05] VITALS: Ht 180.3 cm; Wt 96.2 kg
[~2017-01-05 16:02] MED LIST changes: +ADVA250A INH; -ADVAI250I PO; +ALBU0.08 NEB; +ALPR2TAB3 PO; +ASPI1TAB69 PO; -ASPI325T PO; -DEPA500T PO; +DEPA500T3 PO; +HYDR-3535 PO; -HYDR-4347 PO; -ISOS60 PO; +ISOS60TA PO; +METO25TA3 PO; -METO50TA OR; -PANT20 PO; +PHEN-524 PO; -PHEN60TA OR; +PRED20 PO; -PRED5TAB PO; +SERT-129 PO; -TIOT18I INH; -XANA1TAB6 PO; -Z.0.OXYGENDME NC; -ZOLO100T PO
[2017-01-05 16:10] VITALS: BP 171/110; PULSE 125; RESP 20; TEMP 98.7; O2SAT 95
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
[2017-01-05] MEDS ORDERED: TEMA30CA PO (16:39)
== END 2017-01-05 16:51 | disposition home or self-care (01) ==
LOC: PHED 16:02
DX: F41.9 Anxiety disorder, unspecified (principal); G47.00 Insomnia, unspecified; F32.9 Major depressive disorder, single episode, unspecified; I10 Essential (primary) hypertension; I50.9 Heart failure, unspecified; J44.9 Chronic obstructive pulmonary disease, unspecified; I25.10 Atherosclerotic heart disease of native coronary artery without angina pectoris; I25.2 Old myocardial infarction; R56.9 Unspecified convulsions
CPT/HCPCS: 99283